=== PATIENT | female | born 1995 | race Two or more races ===

== ENCOUNTER 2021-05-10 15:48 | Emergency (ER) | payer OTHER ==
[2021-05-10 16:19] LABS: BASOPHILS % (AUTO) 0.5 %; EOSINOPHILS # (AUTO) 0.1 10^3/uL (0.0-0.7); EOSINOPHILS % (AUTO) 0.8 %; HCT - HEMATOCRIT 39.5 % (37.0-47.0); HGB - HEMOGLOBIN 13.2 g/dL (12.0-16.0); LYMPHOCYTES # (AUTO) 1.6 10^3/uL (1.5-3.5); LYMPHOCYTES % (AUTO) 21.4 %; MEAN CORPUSCULAR HEMOGLOBIN 30.6 pg (27.0-31.0); MEAN CORPUSCULAR HGB CONC 33.4 g/dL (32.0-36.0); MEAN CORPUSCULAR VOLUME 91.4 fL (81.0-99.0); MEAN PLATELET VOLUME 9.7 fL (7.9-10.8); MONOCYTES # (AUTO) 0.4 10^3/uL (0.0-1.0); MONOCYTES % (AUTO) 5.1 %; NEUTROPHILS # (AUTO) 5.4 10^3/uL (1.5-6.6); NEUTROPHILS % (AUTO) 72.1 %; PLT - PLATELET COUNT 257 10^3/uL (130-450); RED BLOOD COUNT 4.32 10^6/uL (4.20-5.40); RED CELL DISTRIBUTION WIDTH 13.1 % (12.0-15.0); WHITE BLOOD COUNT 7.5 x10^3/uL (4.8-10.8)
[2021-05-10 16:36] LABS: ALBUMIN 4.9 g/dL (3.2-5.5); ALBUMIN/GLOBULIN RATIO 1.3 (1.0-2.2); BILIRUBIN,TOTAL 1.1 mg/dL (0.2-1.0); CALCIUM 9.4 mg/dL (8.5-10.3); CREATININE 0.5 mg/dL (0.4-1.0); POTASSIUM 3.2 mmol/L (3.5-5.0); TOTAL PROTEIN 8.6 g/dL (6.7-8.2)
[2021-05-10 16:56] LABS: GLUCOSE, URINE (UA) NEGATIVE (NEGATIVE); KETONES,URINE (UA) >=80 mg/dL (NEGATIVE); LEUKOCYTE ESTERASE, URINE NEGATIVE (NEGATIVE); NITRITE,URINE NEGATIVE (NEGATIVE); OCCULT BLOOD,URINE LARGE (NEGATIVE); PROTEIN,URINE NEGATIVE (NEGATIVE); UROBILINOGEN,URINE 1 (NORMAL) E.U./dL (NORMAL)
[2021-05-10 16:57] LABS: CLARITY,URINE CLEAR (CLEAR)
[2021-05-10 17:01] LABS: ICTOTEST,URINE POSITIVE
[2021-05-10 17:02] LABS: BILIRUBIN,URINE SMALL (NEGATIVE)
[2021-05-10 17:20] LABS: BACTERIA,URINE Few /HPF (None Seen); MUCUS,URINE Moderate Strands; RBC,URINE TNTC /HPF (0-5); SQUAMOUS EPITHELIAL CELL,UR RARE Squamous (<= Few); WBC,URINE 0-3 /HPF (0-5)
--- NOTE | 2021-05-10 17:22 | ED Physician Documentation ---
History of Present Illness - Stated complaint Stated Complaint: BLEEDING,CRAMPING +PREG - Chief complaint Chief Complaint: Abd Pain - History obtained from History obtained from: Patient - History of Present Illness Timing: Today Pain level max: 2 Pain level now: 0 - Additonal information Additional information: Patient is a 26-year-old female who presents to the emergency department with vaginal bleeding for the past 2 days. Also mild pelvic cramping yesterday. She is about 7 weeks . No cramping now. No abdominal pain. 2 para 1. Nothing makes it better or worse. No fevers. No chills. No passage of tissue. Review of Systems Ten Systems: 10 systems reviewed and negative Constitutional: denies: Fever, Chills GI: denies: Vomiting, Diarrhea Skin: denies: Rash Musculoskeletal: denies: Neck pain, Back pain Neurologic: denies: Headache PD PAST MEDICAL HISTORY - Past Medical History Past Medical History: No - Past Surgical History Past Surgical History: No - Present Medications Home Medications: Ambulatory Orders Medication Instructions Recorded Confirmed No Known Home Medications 05/10/21 05/10/21 - Allergies Allergies/Adverse Reactions: Allergies Allergy/AdvReac Type Severity Reaction Status Date / Time No Known Drug Allergies Allergy Verified 05/10/21 16:00 - Living Situation Living Situation: reports: With family Living Arrangement: reports: At home - Social History Does the pt have substance abuse?: No - Family History Family history: reports: Non contributory PD ED PE NORMAL - Vitals Vital signs reviewed: Yes - General General: Alert and oriented X 3, No acute distress - HEENT HEENT: Moist mucous membranes - Neck Neck: Supple, no meningeal sign - Cardiac Cardiac: RRR - Respiratory Respiratory: No respiratory distress, Clear bilaterally - Abdomen Abdomen: Soft, Non tender, Non distended - Derm Derm: Warm and dry - Extremities Extremities: No edema, No calf tenderness / cord - Neuro Neuro: Alert and oriented X 3 Results - Vitals Vitals: Vital Signs - 24 hr 05/10/21 05/10/21 15:58 18:00 Temperature 36.0 C L Heart Rate 88 84 Respiratory 16 16 Rate Blood Pressure 136/68 H 105/60 O2 Saturation 100 100 Oxygen O2 Source Room air - Labs Labs: Laboratory Tests 05/10/21 05/10/21 05/10/21 14:10 14:10 14:10 WBC 7.5 RBC 4.32 Hgb 13.2 Hct 39.5 MCV 91.4 MCH 30.6 MCHC 33.4 RDW 13.1 Plt Count 257 MPV 9.7 Neut # (Auto) 5.4 Lymph # (Auto) 1.6 Ulster # (Auto) 0.4 Eos # (Auto) 0.1 Baso # (Auto) 0.0 Absolute Nucleated RBC 0.00 Nucleated RBC % 0.0 Sodium 138 Potassium 3.2 L Chloride 105 Carbon Dioxide 23 Anion Gap 10.0 BUN 8 Creatinine 0.5 Estimated GFR (MDRD) 149 Glucose 101 H Calcium 9.4 Total Bilirubin 1.1 H AST 28 ALT 39 Alkaline Phosphatase 70 Total Protein 8.6 H Albumin 4.9 Globulin 3.7 Albumin/Globulin Ratio 1.3 Lipase 22 HCG, Quant Urine Color Urine Clarity Urine pH Ur Specific Crowder Urine Protein Urine Glucose (UA) Urine Ketones Urine Occult Blood Urine Nitrite Urine Bilirubin Urine Urobilinogen Ur Leukocyte Esterase Urine RBC Urine WBC Ur Squamous Epith Cells Urine Bacteria Urine Mucus Ur Microscopic Review Urine Culture Comments Blood Type O POSITIVE 05/10/21 05/10/21 14:10 16:47 WBC RBC Hgb Hct MCV MCH MCHC RDW Plt Count MPV Neut # (Auto) Lymph # (Auto) Ulster # (Auto) Eos # (Auto) Baso # (Auto) Absolute Nucleated RBC Nucleated RBC % Sodium Potassium Chloride Carbon Dioxide Anion Gap BUN Creatinine Estimated GFR (MDRD) Glucose Calcium Total Bilirubin AST ALT Alkaline Phosphatase Total Protein Albumin Globulin Albumin/Globulin Ratio Lipase HCG, Quant 1901.00 Urine Color YELLOW Urine Clarity CLEAR Urine pH 6.0 Ur Specific Crowder 1.025 Urine Protein NEGATIVE Urine Glucose (UA) NEGATIVE Urine Ketones >=80 H Urine Occult Blood LARGE H Urine Nitrite NEGATIVE Urine Bilirubin SMALL H Urine Urobilinogen 1 (NORMAL) Ur Leukocyte Esterase NEGATIVE Urine RBC TNTC H Urine WBC 0-3 Ur Squamous Epith Cells RARE Squamous Urine Bacteria Few Urine Mucus Moderate Strands Ur Microscopic Review INDICATED Urine Culture Comments NOT INDICATED Blood Type - Rads (name of study) OB US Radiology: Final report received, EMP read contemporaneously, See rad report (1. Single intrauterine demonstrates a pole without identifiable cardiac activity at 5 week 6 day gestation. 2. The gestational sac is low within the endometrial canal and oblong in morphology. 3. Findings are suspicious for threatened . Serial beta hCG levels are recommended ) PD MEDICAL DECISION MAKING - ED course Complexity details: reviewed results, re-evaluated patient, considered differential, d/w patient ED course: Patient is a 26-year-old female with a threatened . We will have her follow-up with her doctor for repeat hCG level in 3 days. Patient was informed of the ultrasound results. Patient is well-appearing, nontoxic. Afebrile. Patient counseled regarding signs and symptoms for which I believe and urgent re-evaluation would be necessary. Patient with good understanding of and agreement to plan and is comfortable going home at this time This document was made in part using voice recognition software. While efforts are made to proofread this document, sound alike and grammatical errors may occur. 1. Single intrauterine demonstrates a pole without identifiable cardiac activity at 5 week 6 day gestation. 2. The gestational sac is low within the endometrial canal and oblong in morphology. 3. Findings are suspicious for threatened . Serial beta hCG levels are recommended and to assess for viability, ultrasound and 2-3 weeks is recommended if beta hCG levels continue to rise Departure - Departure Disposition: 01 Home, Self Care Clinical Impression: Vaginal bleeding affecting early , Threatened affecting i ntrauterine Condition: Good Instructions: ED Miscarriage Poss Follow-Up: your,doctor in 3 days for repeat HCG level [Other] Comments: Please follow-up with your doctor in 3 days for a repeat hCG level. Your hCG is around 1900 tonight. If the level is increasing, this is consistent with an ongoing , if the level is decreasing this is consistent with a miscarriage. Please follow-up with your doctor for further care. Return if you worsen. OB Ultrasound results: 1. Single intrauterine demonstrates a pole without identifiable cardiac activity at 5 week 6 day gestation. 2. The gestational sac is low within the endometrial canal and oblong in morphology. 3. Findings are suspicious for threatened . Serial beta hCG levels are recommended and to assess for viability, ultrasound and 2-3 weeks is recommended if beta hCG levels continue to rise. Discharge Date/Time: 05/10/21 18:45
[2021-05-10 18:22] VITALS: BP 105/60
--- NOTE | 2021-05-10 18:25 | Ultrasound Report ---
PROCEDURE: OB First Trimester w/TV INDICATIONS: 7 weeks preg, VB OUTSIDE/PRIOR DATING DATA: Last menstrual period (LMP): 03/20/2021. LMP-based estimated date of delivery (MIGUEL): 12/25/2021. First dating scan (date and location): 05/10/2021. Estimated date of delivery (MIGUEL) from first dating scan: 01/04/2022. The below data below was generated using the sonographically derived MIGUEL of 01/04/2022 TECHNIQUE: Real-time scanning was performed of the fetus and maternal pelvic organs, with image documentation. Endovaginal scanning was also performed to better visualize the fetus and maternal ovaries. COMPARISON: None FINDINGS: Embryo: There is an intrauterine gestational sac which is slightly low within the endometrial cavity and ovoid/ teardrop shaped. There is a pole with an average crown-rump length of 2.7 mm corres ponding to a 5 week 6 day gestation. There is no detectable cardiac activity. A yolk sac is pre sent. The average gestational sac diameter is 5.7 mm which corresponds to 5 week 2 day gestation. Heart rate: None identified Measurement variability in dating: +/- 4 weeks by LMP, +/- 7 days by mean sac diameter (use before 6 weeks gestation if crown-rump length not able to be measured), +/- 5 days by crown-rump length (6-12 weeks gestation). Maternal organs: There is heterogeneous echogenic material within the lower uterine segment/proximal cervix which may be clot. The cervix is otherwise closed.. There is no free pelvic fluid. Both ovarie s demonstrate a normal follicular echotexture. There is a corpus luteum measuring 1.5 cm on the left ovary. IMPRESSION: 1. Single intrauterine demonstrates a pole without identifiable cardiac activity at 5 week 6 day gestation. 2. The gestational sac is low within the endometrial canal and oblong in morphology. 3. Findings are suspicious for threatened . Serial beta hCG levels are recommended and to ass ess for viability, ultrasound and 2-3 weeks is recommended if beta hCG levels continue to rise. Reviewed by: Deborah Alcazar MD on 05/10/2021 6:23 PM PST Approved by: Deborah Alcazar MD on 05/10/2021 6:23 PM PST Station ID: [id number]
== END 2021-05-10 18:45 | disposition home or self-care (01) ==
LOC: ED 15:48
DX: O20.0 Threatened abortion (principal); Z3A.01 Less than 8 weeks gestation of pregnancy
CPT/HCPCS: 36415; 80053; 81001; 81003; 83690; 84702; 85025; 86900; 86901; 87086; 99284

== ENCOUNTER 2021-05-13 17:58 | Emergency (ER) | payer OTHER ==
[2021-05-13 21:08] VITALS: BP 115/73
--- NOTE | 2021-05-13 21:16 | ED Physician Documentation ---
History of Present Illness - Stated complaint Stated Complaint: BLOOD TEST - Chief complaint Chief Complaint: General - History obtained from History obtained from: Patient - Additonal information Additional information: seen by my partner a couple of days ago for threatened miscarriage and with apparent IUFD on ultrasound. Beta hCG at that time was 06/30/2000. She was advised to return today for repeat beta-hCG. Bleeding is down quite a lot, just some spotting now. Review of Systems Constitutional: reports: Reviewed and negative Cardiac: reports: Reviewed and negative Respiratory: reports: Reviewed and negative PD PAST MEDICAL HISTORY - Past Medical History Past Medical History: No - Past Surgical History Past Surgical History: No - Present Medications Home Medications: Ambulatory Orders Medication Instructions Recorded Confirmed No Known Home Medications 05/10/21 05/13/21 - Allergies Allergies/Adverse Reactions: Allergies Allergy/AdvReac Type Severity Reaction Status Date / Time No Known Drug Allergies Allergy Verified 05/10/21 16:00 - Social History Does the pt smoke?: No Smoking Status: Never smoker Does the pt have substance abuse?: No PD ED PE NORMAL - Vitals Vital signs reviewed: Yes - General General: Alert and oriented X 3, No acute distress - HEENT HEENT: PERRL, EOMI - Neck Neck: Supple, no meningeal sign, No bony TTP - Cardiac Cardiac: RRR, No murmur - Neuro Neuro: Alert and oriented X 3, Normal speech - Psych Psych: Normal mood, Normal affect Results - Vitals Vitals: Vital Signs - 24 hr 05/13/21 05/13/21 18:02 21:05 Temperature 36.5 C Heart Rate 61 64 Respiratory 18 14 Rate Blood Pressure 118/61 115/73 O2 Saturation 99 99 Oxygen O2 Source Room air - Labs Labs: Laboratory Tests 05/13/21 18:50 HCG, Quant 78.33 PD MEDICAL DECISION MAKING - ED course ED course: Her beta-hCG has dropped precipitously suggesting miscarriage in process. She does not have a PCP and discussed with her that she should probably return in about 5 days for beta-hCG recheck as it would be best to follow it down to 0. Departure - Departure Disposition: 01 Home, Self Care Clinical Impression: Miscarriage Condition: Good Record reviewed to determine appropriate education?: Yes Instructions: ED Miscarriage Incom Comments: As discussed, your beta-hCG went from 1901 3 days ago down to 73 today. This strongly suggests a miscarriage in process or completed miscarriage. We do want to follow that number down to 0 so I would return in about 5 days for recheck again. Sooner if worse.
== END 2021-05-13 21:20 | disposition home or self-care (01) ==
LOC: ED 17:58
DX: O03.9 Complete or unspecified spontaneous abortion without complication (principal)
CPT/HCPCS: 36415; 84702; 99283

== ENCOUNTER 2021-05-18 12:50 | Emergency (ER) | payer OTHER ==
[2021-05-18 13:18] VITALS: BP 136/74
--- NOTE | 2021-05-18 14:38 | ED Physician Documentation ---
History of Present Illness - Stated complaint Stated Complaint: FOLLOW UP TESTING - Chief complaint Chief Complaint: General - History obtained from History obtained from: Patient - Additonal information Additional information: 26-year-old woman originally seen 9 days ago for bleeding and cramping and diagnosed with likely intrauterine demise by ultrasound, her beta hCG at that time was 1901. Was recommended by my partner that she return for repeat beta-hCG evaluation in a few days later her beta hCG was in the 70s. She returns as directed for beta-hCG evaluation. She is now asymptomatic without cramping or bleeding. Review of Systems Constitutional: reports: Reviewed and negative Throat: reports: Reviewed and negative Cardiac: reports: Reviewed and negative PD PAST MEDICAL HISTORY - Past Surgical History Past Surgical History: No - Present Medications Home Medications: Ambulatory Orders Medication Instructions Recorded Confirmed No Known Home Medications 05/10/21 05/13/21 - Allergies Allergies/Adverse Reactions: Allergies Allergy/AdvReac Type Severity Reaction Status Date / Time No Known Drug Allergies Allergy Verified 05/18/21 13:18 - Social History Does the pt smoke?: No Smoking Status: Never smoker Does the pt have substance abuse?: No PD ED PE NORMAL - Vitals Vital signs reviewed: Yes - General General: Alert and oriented X 3, No acute distress - Abdomen Abdomen: Non tender, Non distended - Neuro Neuro: Alert and oriented X 3, Normal speech Results - Vitals Vitals: Vital Signs - 24 hr 05/18/21 13:14 Temperature 36.7 C Heart Rate 66 Respiratory 15 Rate Blood Pressure 136/74 H O2 Saturation 100 Oxygen O2 Source Room air - Labs Labs: Laboratory Tests 05/18/21 13:02 HCG, Quant 14.18 PD MEDICAL DECISION MAKING - ED course ED course: Beta-hCG continues to trend down, still measurable though and case was discussed by phone with Dr. Reuben Caraballo obstetric clinical sales consultant who did not feel that further testing was necessary. Departure - Departure Disposition: 01 Home, Self Care Clinical Impression: Miscarriage Condition: Stable
== END 2021-05-18 14:38 | disposition home or self-care (01) ==
LOC: ED 12:50
DX: O03.9 Complete or unspecified spontaneous abortion without complication (principal)
CPT/HCPCS: 36415; 84702